=== PATIENT | male | born 1995 | race Caucasian/White ===

== ENCOUNTER 2019-04-19 02:12 | Emergency (ER) | payer SELFPAY ==
[~2019-04-19] VITALS: Ht 180.3 cm; Wt 77.5 kg
--- NOTE | 2019-04-19 03:00 | NUR ---
pt to room from lobby
--- NOTE | 2019-04-19 03:06 | NUR ---
assessment made. chart up for MD to see. c/o left sided chest pain off and on x 4 days. non radiating. states feeling much better now.
--- NOTE | 2019-04-19 03:14 | NUR ---
PA at bedside.
[2019-04-19 03:26] VITALS: BP 127/79
--- NOTE | 2019-04-19 03:31 | NUR ---
blood draw. Xray done. awaiting results.
[2019-04-19 03:46] LABS: BASOPHILS # (AUTO) 0.03 x10^3/uL (0-0.1); BASOPHILS % (AUTO) 1 % (0-1); EOSINOPHILS # (AUTO) 0.47 x10^3/uL (0-0.4); EOSINOPHILS % (AUTO) 7 % (1-7); LYMPHOCYTES # (AUTO) 2.11 x10^3/uL (1-3.4); LYMPHOCYTES % (AUTO) 31 % (22-44); MD NO; MEAN CORPUSCULAR HEMOGLOBIN 30.4 pg (27.5-34.5); MEAN CORPUSCULAR HGB CONC 33.4 g/dL (33.2-36.2); MEAN CORPUSCULAR VOLUME 90.8 fL (81-97); MEAN PLATELET VOLUME 8.2 fL (7.4-10.4); MONOCYTES # (AUTO) 0.54 x10^3/uL (0.2-0.8); MONOCYTES % (AUTO) 8 % (2-9); NEUTROPHILS # (AUTO) 3.73 x10^3/uL (1.8-6.8); NEUTROPHILS % (AUTO) 54 % (42-75); PLATELET COUNT 278 x10^3/uL (130-400); RED BLOOD COUNT 4.98 x10^6/uL (4.38-5.82); RED CELL DISTRIBUTION WIDTH 12.6 % (9.4-14.8)
[2019-04-19 03:51] LABS: ANION GAP 9 mmol/L (5-15); CALCIUM 9.3 mg/dL (8.5-10.1); CHLORIDE 103 mmol/L (98-107); CREATININE 1.46 mg/dL (0.7-1.3)
[2019-04-19 04:14] LABS: FREE T4 (FREE THYROXINE) 0.94 ng/dL (0.76-1.46)
--- NOTE | 2019-04-19 04:44 | NUR ---
re-evaluation done. patient discharged with instruction. verbalized understanding.
== END 2019-04-19 04:55 | disposition home or self-care (01) ==
LOC: ED 04:40
DX: R00.2 Palpitations (principal); R79.89 Other specified abnormal findings of blood chemistry; R94.6 Abnormal results of thyroid function studies
CPT/HCPCS: 36415; 71045; 80048; 82040; 84439; 84443; 85025; 93005; 99284